=== PATIENT | female | born 1960 | race Caucasian/White ===

== ENCOUNTER 2022-03-07 13:09 | Emergency (ER) | payer BC, SELFPAY ==
[2022-03-07 13:35] VITALS: BP 116/80; PULSE 107; RESP 20; TEMP 36.9; O2SAT 95
--- NOTE | 2022-03-07 14:24 | PC.NURSE ---
WATER GIVEN NO NEW COMPLAINTS OF.
--- NOTE | 2022-03-07 14:42 | PC.NURSE ---
Resting easily. No diaphoresis. No shortness of breath. Apologized for the wait.
--- NOTE | 2022-03-07 15:00 | ED.URI ---
HPI - URI/Sore Throat General Chief Complaint: Upper Respiratory Infection Stated Complaint: Chest Congestion/Cough Time Seen by Provider: 03/07/22 15:00 Source: patient, family, RN notes reviewed and old records reviewed Mode of arrival: ambulatory Limitations: no limitations History of Present Illness HPI Narrative: 62 year old female accompanied by son presents to express care with complaints of one week duration of illness of cough, congestion, shortness of breath, body aches and fevers. Nurse was called to triage at time of arrival due to patient's complaints of feeling diaphoretic and short of breath with SAO2 93%. Patient reports that she took Tylenol prior to arrival and after sitting in triage for a few minutes SAO2 up to 95% with no acute distress noted. Patient has a long history of tobacco abuse of 1 to 1.5 ppd for 30 years.Patient has taken Mucinex, Tylenol and Benadryl for her symptoms. MD elicited complaint: cough and other (chest congestion) Pertinent past history: pneumonia and other (tobacco abuse) Onset (ago): week(s) (1) Description of mucous: yellow Able to tolerate fluids by mouth: Yes Exacerbating factors: exertion Treatments prior to arrival: acetaminophen Related Data Home Medications Medication Instructions Recorded Confirmed atorvastatin 20 mg tablet mg 03/07/22 dextroamphetamine-amphetamine 20 03/07/22 mg tablet meloxicam 7.5 mg tablet mg 03/07/22 venlafaxine 150 mg mg PO 03/07/22 capsule,extended release 24 hr Allergies Allergy/AdvReac Type Severity Reaction Status Date / Time No Known Allergies Allergy Unverified 03/22/17 11:13 Review of Systems Review of Systems: CONSTITUTIONAL:Reports malaise, chills, sweats, or fever. EYES: Denies visual changes, redness, or discharge. ENT: Reports rhinorrhea, congestion, sinus pain, no otalgia no sore throat. CARDIOVASCULAR: Denies chest pain, palpitations, or edema. RESPIRATORY: Reports cough.?reports some dyspnea with exertion GASTROINTESTINAL: Denies abdominal pain, nausea, vomiting, diarrhea SKIN: Denies rash or itching. MUSCULOSKELETAL: Reports myalgia. NEUROLOGIC: Denies headache. All systems reviewed & are unremarkable except as noted in HPI and below PMFSH Past Medical History Medical History (Updated 03/12/22 @ 21:11 by Shena Concepcion NP) ADHD, adult residual type Anxiety and depression Colon cancer Migraine Pneumonia Surgical History Surgical History (Updated 03/12/22 @ 20:59 by Shena Concepcion NP) History of colon surgery Social History Social History (Updated 03/12/22 @ 21:08 by Shena Concepcion NP) Smoking packs per day: 1 Smoking cigarettes per day: 20.0 Years smoked: 30 Smoking pack-years: 30.00 Smoking status: Current every day smoker Alcohol intake: unknown Substance use type: does not use Living arrangements: with family Gender identity (if verbalized by the patient): Female Comments At time of signature, agree with nursing past medical, surgical, social and family history. There is no relevant family history pertinent to the presenting complaint Exam Narrative: GENERAL: Well-appearing, well-nourished, and in no acute distress. HEAD: Normocephalic EYES: PERRLA, conjunctivae clear ENT: Nares clear, turbinates edematous and erythematous, clear discharge. Mucous membranes moist. TM pearly manley with dull light reflex bilaterally; no tragal tenderness. Oropharynx erythematous without lesions. Tonsils not enlarged and without exudate, no drooling, no hoarseness, no trismus, uvula midline.post nasal drainage NECK: Supple. No lymphadenopathy CHEST: Scattered wheezing on auscultation, breath sounds equal. scattered wheezing, no rhonchi, rales, or stridor. No respiratory distress, speaks in full sentences cough with SAO2 95% on room air. HEART: Regular rate and rhythm. No murmur heard. SKIN: Warm, dry, no rash. NEURO: Alert and oriented x3. PSYCH: Nor
--- NOTE | 2022-03-07 15:15 | PC.NURSE ---
Tearful and anxious. Wants to go home. Sats 95% Heart rate 117. Apologized for the wait.
--- NOTE | 2022-03-07 15:49 | PC.NURSE ---
Given water per request. Very anxious. Tearful. Sat 96%. Heart rate 115. States she needs a cigarette. Skin warm and dry.
== END 2022-03-07 17:06 | disposition home or self-care (01) ==
PROVIDERS: Emergency Provider Registered Nurse; PCP Family Medicine
DX: J06.9 Acute upper respiratory infection, unspecified (principal); R05.9 Cough, unspecified
CPT/HCPCS: 87804; 99203; G0463